=== PATIENT | female | born 1965 | race American Indian/Alaskan Native ===

== ENCOUNTER 2020-03-25 06:32 | Emergency (ER) | payer OTHER ==
--- NOTE | 2020-03-25 07:02 | Emergency Department Report ---
ED General Adult HPI - General Chief complaint: Altered Mental Status Stated complaint: ALTERED PUI?: No Time Seen by Provider: 03/25/20 06:53 Source: patient, EMS (Verbal report received from emergency medical services. EMS documentation not available at time of chart dictation ), RN notes reviewed Limitations: Altered Mental Status - History of Present Illness Initial comments: The patient was evaluated in the emergency department for symptoms described in the history of present illness. He/she was evaluated in the context of the global COVID-19 pandemic, which necessitated consideration that the patient might be at risk for infection with the virus that causes COVID-19. Institutional protocols and algorithms that pertain to the evaluation of patients at risk for COVID-19 are in a state of rapid change based on information released by regulatory bodies including the CDC and federal and state organizations. These policies and algorithms were followed during the patient's care in the emergency department. Please note that these policies, procedures and recommendations changed on a rapid basis. This is a 54-year-old female. She is not known to myself previously. The details of her past medical history are not known. She is brought to the hospital by emergency medical services. Apparently, patient was sitting in a parked car in a [employer] parking lot, which was not running, and not damaged. The patient was not really moving, or doing anything, so concern passers by called 911. Emergency medical services tells me that the patient had unremarkable vital signs in the field, and a fairly unremarkable glucose. They also tell me that the patient was negative on their [place] stroke scale. The patient is not accompanied by friends or family at this time for collateral information or additional information. The patient herself is minimally verbal. She is awake, and when examined, exclaims "shit!" However, she will not tell me if she is having physical pain, or if she has attempted to overdose on anything. History limited as patient is not forthcoming,/unable to provide collateral information, the patient is not accompanied by friends or family at this time for additional history. -: unknown - Related Data Previous Rx's Medication Instructions Recorded Last Taken Type Nitrofurantoin Adams/M-Cryst 100 mg PO Q12HR #14 capsule 03/25/20 Unknown Rx [Macrobid CAP] Potassium Chloride 20 meq PO BID #30 packet 03/25/20 Unknown Rx Allergies Allergy/AdvReac Type Severity Reaction Status Date / Time Unable to Assess Allergy Unverified 03/25/20 06:46 ED Review of Systems ROS: Stated complaint: ALTERED Other details as noted in HPI Comment: Unobtainable due to pts medical conditions ED Past Medical Hx - Medications Home Medications: Home Medications Medication Instructions Recorded Confirmed Last Taken Type Nitrofurantoin Adams/M-Cryst 100 mg PO Q12HR #14 capsule 03/25/20 Unknown Rx [Macrobid CAP] Potassium Chloride 20 meq PO BID #30 packet 03/25/20 Unknown Rx ED Physical Exam - General Limitations: Altered Mental Status General appearance: alert, in no apparent distress, appears intoxicated, obese - Head Head exam: Present: atraumatic, normocephalic - Eye Eye exam: Present: normal appearance, PERRL, EOMI. Absent: nystagmus - ENT ENT exam: Present: normal exam, normal orophraynx, mucous membranes moist, normal external ear exam - Neck Neck exam: Present: normal inspection, full ROM. Absent: tenderness, meningismus - Respiratory Respiratory exam: Present: normal lung sounds bilaterally. Absent: respiratory distress, wheezes, rales, rhonchi, stridor, decreased breath sounds - Cardiovascular Cardiovascular Exam: Present: regular rate, normal rhythm, normal heart sounds. Absent: bradycardia, tachycardia, irregular rhythm, systolic murmur, diastolic murmur, rubs, gallop - GI/Abdominal GI/Abdominal exam: Present: soft. Absent: distended, tenderness, guarding, rebound, rigid, pulsatile mass - Extremities Exam Extremities exam: Present: normal inspection, full ROM, other (2+ pulses noted in the bilateral upper and lower extremities. There is no palpable cord. negative Homans sign. Muscular compartments are soft. The pelvis is stable.). Absent: pedal edema, calf tenderness - Back Exam Back exam: Present: normal inspection, full ROM. Absent: tenderness, CVA tenderness (R), CVA tenderness (L), paraspinal tenderness, vertebral tenderness - Neurological Exam Neurological exam: Present: altered, other (The patient is awake. The patient is moving 4 extremities. Sensation is intact to pinch in 4 extremities. There is no obvious facial droop.) - Skin Skin exam: Present: warm, dry, intact, normal color. Absent: rash ED Course Vital Signs 03/25/20 03/25/20 03/25/20 06:39 06:45 06:48 Temperature 97.7 F Pulse Rate 76 Respiratory 15 Rate Blood Pressure 113/63 123/72 Blood Pressure 123/72 [Right] O2 Sat by Pulse 95 96 Oximetry 03/25/20 03/25/20 03/25/20 07:12 07:26 07:30 Temperature Pulse Rate 83 80 Respiratory 13 14 Rate Blood Pressure 123/72 120/76 120/76 Blood Pressure [Right] O2 Sat by Pulse 97 Oximetry 03/25/20 03/25/20 03/25/20 07:45 07:53 08:00 Temperature Pulse Rate 75 73 Respiratory 14 24 27 H Rate Blood Pressure 115/63 95/52 Blood Pressure [Right] O2 Sat by Pulse 97 99 97 Oximetry 03/25/20 03/25/20 03/25/20 08:15 08:30 08:45 Temperature Pulse Rate 79 70 Respiratory 15 33 H Rate Blood Pressure 81/48 116/69 99/48 Blood Pressure [Right] O2 Sat by Pulse 96 99 99 Oximetry 03/25/20 03/25/20 03/25/20 09:00 09:15 09:30 Temperature Pulse Rate 70 72 Respiratory 23 16 Rate Blood Pressure 103/57 104/56 86/51 Blood Pressure [Right] O2 Sat by Pulse 91 97 98 Oximetry 03/25/20 03/25/20 03/25/20 09:45 10:00 10:15 Temperature Pulse Rate Respiratory Rate Blood Pressure 104/59 87/50 91/53 Blood Pressure [Right] O2 Sat by Pulse 98 98 99 Oximetry 03/25/20 03/25/20 03/25/20 10:31 10:45 11:01 Temperature Pulse Rate 74 Respiratory Rate Blood Pressure 108/66 108/66 117/94 Blood Pressure [Right] O2 Sat by Pulse 97 98 100 Oximetry 03/25/20 03/25/20 03/25/20 11:15 11:30 11:45 Temperature Pulse Rate Respiratory Rate Blood Pressure 116/83 113/71 106/65 Blood Pressure [Right] O2 Sat by Pulse 100 100 99 Oximetry 03/25/20 03/25/20 12:00 12:15 Temperature Pulse Rate 73 Respiratory 14 Rate Blood Pressure 119/72 120/80 Blood Pressure [Right] O2 Sat by Pulse 97 96 Oximetry - Reevaluation(s) Reevaluation #1: 03/25/20 07:28 Differential diagnosis, including but not limited to: Intracranial injury, toxic encephalopathy, metabolic encephalopathy, pneumonia, urinary tract infection Assessment and plan: 54-year-old female who is likely intoxicated. There is no sign of blunt trauma to the patient, and EMS states vehicle was undamaged. Patient will be placed on hold status, and laboratory studies will be obtained to evaluate for emergent toxicologic condition. CT scan of the brain was negative, there is no midline cervical spine tenderness, the patient is moving 4 extremities spontaneously, and there is no history of blunt or penetrating trauma. Suspect intoxication. Reassess after data points have resulted. 03/25/20 11:54 Patient has been reassessed multiple times while here in the emergency depa rtment. She is now awake, alert, oriented, and clinically sober. CT scan of the brain, x-ray of the chest were negative for acute findings. Urinalysis reviewed and appreciated, patient denies urinary symptoms. She states that last night, she recreationally indulging cocaine, and also took one of her prescribed amitriptyline. She states that she was not trying to harm herself. She is remorseful about her cocaine use. She denies all physical pain at this time. She is alert and oriented to name, place, location, month, year. She denies hallucinations. She states a family member will come by and pick her up. The patient does not meet criteria for involuntary confinement of 1013 hold at this time. Her medical work-up is fairly unremarkable, and given improvement in mental status, lucidity of patient's examination at this time, do not see a criteria to admit patient to the inpatient medical service. Patient was extensively counseled on need to avoid recreational drug consumption, and to use medications as prescribed/directed. 03/25/20 17:27 Patient able to ambulate and of this emergency department with a steady gait. ED Medical Decision Making - Lab Data Result diagrams: 03/25/20 07:27 03/25/20 07:27 Vital Signs 03/25/20 06:48 Temperature 97.7 F Pulse Rate 76 Respiratory 15 Rate Blood Pressure 123/72 [Right] O2 Sat by Pulse 96 Oximetry Lab Results 03/25/20 03/25/20 03/25/20 Range/Units 06:53 07:27 07:27 WBC (4.5-11.0) K/mm3 RBC (3.65-5.03) M/mm3 Hgb (10.1-14.3) gm/dl Hct (30.3-42.9) % MCV (79-97) fl MCH (28-32) pg MCHC (30-34) % RDW (13.2-15.2) % Plt Count (140-440) K/mm3 Sodium 141 (137-145) mmol/L Chloride 102.5 (98-107) mmol/L Carbon Dioxide 28 (22-30) mmol/L Anion Gap 14 mmol/L BUN 29 H (7-17) mg/dL Creatinine 0.8 (0.6-1.2) mg/dL Estimated GFR > 60 ml/min BUN/Creatinine Ratio 36 % Glucose 104 H (65-100) mg/dL POC Glucose 144 H (70-105) mg/dL Calcium 9.5 (8.4-10.2) mg/dL Magnesium 2.50 H (1.7-2.3) mg/dL Total Bilirubin 0.20 (0.1-1.2) mg/dL AST 33 (5-40) units/L ALT 27 (7-56) units/L Alkaline Phosphatase 99 (35-129) units/L Total Creatine Kinase 459 H (30-135) units/L Total Protein 7.7 (6.3-8.2) g/dL Albumin 4.0 (3.9-5) g/dL Albumin/Globulin Ratio 1.1 % Urine Color (Yellow) Urine Turbidity (Clear) Urine pH (5.0-7.0) Ur Specific [place] (1.003-1.030) Urine Protein (Negative) mg/dL Urine Glucose (UA) (Negative) mg/dL Urine Ketones (Negative) mg/dL Urine Blood (Negative) Urine Nitrite (Negative) Urine Bilirubin (Negative) Urine Urobilinogen (<2.0) mg/dL Ur Leukocyte Esterase (Negative) Urine WBC (Auto) (0.0-6.0) /HPF Urine RBC (Auto) (0.0-6.0) /HPF U Epithel Cells (Auto) (0-13.0) /HPF Urine Mucus /HPF Salicylates (2.8-20.0) mg/dL Acetaminophen (10.0-30.0) ug/mL Plasma/Serum Alcohol (0-0.07) % 03/25/20 03/25/20 03/25/20 Range/Units 07:27 07:27 07:27 WBC (4.5-11.0) K/mm3 RBC (3.65-5.03) M/mm3 Hgb (10.1-14.3) gm/dl Hct (30.3-42.9) % MCV (79-97) fl MCH (28-32) pg MCHC (30-34) % RDW (13.2-15.2) % Plt Count (140-440) K/mm3 Sodium (137-145) mmol/L Chloride (98-107) mmol/L Carbon Dioxide (22-30) mmol/L Anion Gap mmol/L BUN (7-17) mg/dL Creatinine (0.6-1.2) mg/dL Estimated GFR ml/min BUN/Creatinine Ratio % Glucose (65-100) mg/dL POC Glucose (70-105) mg/dL Calcium (8.4-10.2) mg/dL Magnesium (1.7-2.3) mg/dL Total Bilirubin (0.1-1.2) mg/dL AST (5-40) units/L ALT (7-56) units/L Alkaline Phosphatase (35-129) units/L Total Creatine Kinase (30-135) units/L Total Protein (6.3-8.2) g/dL Albumin (3.9-5) g/dL Albumin/Globulin Ratio % Urine Color (Yellow) Urine Turbidity (Clear) Urine pH (5.0-7.0) Ur Specific [place] (1.003-1.030) Urine Protein (Negative) mg/dL Urine Glucose (UA) (Negative) mg/dL Urine Ketones (Negative) mg/dL Urine Blood (Negative) Urine Nitrite (Negative) Urine Bilirubin (Negative) Urine Urobilinogen (<2.0) mg/dL Ur Leukocyte Esterase (Negative) Urine WBC (Auto) (0.0-6.0) /HPF Urine RBC (Auto) (0.0-6.0) /HPF U Epithel Cells (Auto) (0-13.0) /HPF Urine Mucus /HPF Salicylates 3.0 (2.8-20.0) mg/dL Acetaminophen 5.0 L (10.0-30.0) ug/mL Plasma/Serum Alcohol < 0.01 (0-0.07) % 03/25/20 03/25/20 Range/Units 07:27 07:53 WBC 9.5 (4.5-11.0) K/mm3 RBC 4.81 (3.65-5.03) M/mm3 Hgb 12.9 (10.1-14.3) gm/dl Hct 39.9 (30.3-42.9) % MCV 83 (79-97) fl MCH 27 L (28-32) pg MCHC 32 (30-34) % RDW 14.3 (13.2-15.2) % Plt Count 283 (140-440) K/mm3 Sodium (137-145) mmol/L Chloride (98-107) mmol/L Carbon Dioxide (22-30) mmol/L Anion Gap mmol/L BUN (7-17) mg/dL Creatinine (0.6-1.2) mg/dL Estimated GFR ml/min BUN/Creatinine Ratio % Glucose (65-100) mg/dL POC Glucose (70-105) mg/dL Calcium (8.4-10.2) mg/dL Magnesium (1.7-2.3) mg/dL Total Bilirubin (0.1-1.2) mg/dL AST (5-40) units/L ALT (7-56) units/L Alkaline Phosphatase (35-129) units/L Total Creatine Kinase (30-135) units/L Total Protein (6.3-8.2) g/dL Albumin (3.9-5) g/dL Albumin/Globulin Ratio % Urine Color Yellow (Yellow) Urine Turbidity Clear (Clear) Urine pH 5.0 (5.0-7.0) Ur Specific [place] 1.034 H (1.003-1.030) Urine Protein 30 mg/dl (Negative) mg/dL Urine Glucose (UA) Neg (Negative) mg/dL Urine Ketones Neg (Negative) mg/dL Urine Blood Neg (Negative) Urine Nitrite Neg (Negative) Urine Bilirubin Neg (Negative) Urine Urobilinogen < 2.0 (<2.0) mg/dL Ur Leukocyte Esterase Sm (Negative) Urine WBC (Auto) 7.0 H (0.0-6.0) /HPF Urine RBC (Auto) 2.0 (0.0-6.0) /HPF U Epithel Cells (Auto) 4.0 (0-13.0) /HPF Urine Mucus 3+ /HPF Salicylates (2.8-20.0) mg/dL Acetaminophen (10.0-30.0) ug/mL Plasma/Serum Alcohol (0-0.07) % Lab Results 03/25/20 03/25/20 03/25/20 Range/Units 06:53 07:27 07:27 WBC (4.5-11.0) K/mm3 RBC (3.65-5.03) M/mm3 Hgb (10.1-14.3) gm/dl Hct (30.3-42.9) % MCV (79-97) fl MCH (28-32) pg MCHC (30-34) % RDW (13.2-15.2) % Plt Count (140-440) K/mm3 Sodium 141 (137-145) mmol/L Chloride 102.5 (98-107) mmol/L Carbon Dioxide 28 (22-30) mmol/L Anion Gap 14 mmol/L BUN 29 H (7-17) mg/dL Creatinine 0.8 (0.6-1.2) mg/dL Estimated GFR > 60 ml/min BUN/Creatinine Ratio 36 % Glucose 104 H (65-100) mg/dL POC Glucose 144 H (70-105) mg/dL Calcium 9.5 (8.4-10.2) mg/dL Magnesium 2.50 H (1.7-2.3) mg/dL Total Bilirubin 0.20 (0.1-1.2) mg/dL AST 33 (5-40) units/L ALT 27 (7-56) units/L Alkaline Phosphatase 99 (35-129) units/L Total Creatine Kinase 459 H (30-135) units/L Total Protein 7.7 (6.3-8.2) g/dL Albumin 4.0 (3.9-5) g/dL Albumin/Globulin Ratio 1.1 % Urine Color (Yellow) Urine Turbidity (Clear) Urine pH (5.0-7.0) Ur Specific [place] (1.003-1.030) Urine Protein (Negative) mg/dL Urine Glucose (UA) (Negative) mg/dL Urine Ketones (Negative) mg/dL Urine Blood (Negative) Urine Nitrite (Negative) Urine Bilirubin (Negative) Urine Urobilinogen (<2.0) mg/dL Ur Leukocyte Esterase (Negative) Urine WBC (Auto) (0.0-6.0) /HPF Urine RBC (Auto) (0.0-6.0) /HPF U Epithel Cells (Auto) (0-13.0) /HPF Urine Mucus /HPF Salicylates (2.8-20.0) mg/dL Acetaminophen (10.0-30.0) ug/mL Plasma/Serum Alcohol (0-0.07) % 03/25/20 03/25/20 03/25/20 Range/Units 07:27 07:27 07:27 WBC (4.5-11.0) K/mm3 RBC (3.65-5.03) M/mm3 Hgb (10.1-14.3) gm/dl Hct (30.3-42.9) % MCV (79-97) fl MCH (28-32) pg MCHC (30-34) % RDW (13.2-15.2) % Plt Count (140-440) K/mm3 Sodium (137-145) mmol/L Chloride (98-107) mmol/L Carbon Dioxide (22-30) mmol/L Anion Gap mmol/L BUN (7-17) mg/dL Creatinine (0.6-1.2) mg/dL Estimated GFR ml/min BUN/Creatinine Ratio % Glucose (65-100) mg/dL POC Glucose (70-105) mg/dL Calcium (8.4-10.2) mg/dL Magnesium (1.7-2.3) mg/dL Total Bilirubin (0.1-1.2) mg/dL AST (5-40) units/L ALT (7-56) units/L Alkaline Phosphatase (35-129) units/L Total Creatine Kinase (30-135) units/L Total Protein (6.3-8.2) g/dL Albumin (3.9-5) g/dL Albumin/Globulin Ratio % Urine Color (Yellow) Urine Turbidity (Clear) Urine pH (5.0-7.0) Ur Specific [place] (1.003-1.030) Urine Protein (Negative) mg/dL Urine Glucose (UA) (Negative) mg/dL Urine Ketones (Negative) mg/dL Urine Blood (Negative) Urine Nitrite (Negative) Urine Bilirubin (Negative) Urine Urobilinogen (<2.0) mg/dL Ur Leukocyte Esterase (Negative) Urine WBC (Auto) (0.0-6.0) /HPF Urine RBC (Auto) (0.0-6.0) /HPF U Epithel Cells (Auto) (0-13.0) /HPF Urine Mucus /HPF Salicylates 3.0 (2.8-20.0) mg/dL Acetaminophen 5.0 L (10.0-30.0) ug/mL Plasma/Serum Alcohol < 0.01 (0-0.07) % 03/25/20 03/25/20 Range/Units 07:27 07:53 WBC 9.5 (4.5-11.0) K/mm3 RBC 4.81 (3.65-5.03) M/mm3 Hgb 12.9 (10.1-14.3) gm/dl Hct 39.9 (30.3-42.9) % MCV 83 (79-97) fl MCH 27 L (28-32) pg MCHC 32 (30-34) % RDW 14.3 (13.2-15.2) % Plt Count 283 (140-440) K/mm3 Sodium (137-145) mmol/L Chloride (98-107) mmol/L Carbon Dioxide (22-30) mmol/L Anion Gap mmol/L BUN (7-17) mg/dL Creatinine (0.6-1.2) mg/dL Estimated GFR ml/min BUN/Creatinine Ratio % Glucose (65-100) mg/dL POC Glucose (70-105) mg/dL Calcium (8.4-10.2) mg/dL Magnesium (1.7-2.3) mg/dL Total Bilirubin (0.1-1.2) mg/dL AST (5-40) units/L ALT (7-56) units/L Alkaline Phosphatase (35-129) units/L Total Creatine Kinase (30-135) units/L Total Protein (6.3-8.2) g/dL Albumin (3.9-5) g/dL Albumin/Globulin Ratio % Urine Color Yellow (Yellow) Urine Turbidity Clear (Clear) Urine pH 5.0 (5.0-7.0) Ur Specific [place] 1.034 H (1.003-1.030) Urine Protein 30 mg/dl (Negative) mg/dL Urine Glucose (UA) Neg (Negative) mg/dL Urine Ketones Neg (Negative) mg/dL Urine Blood Neg (Negative) Urine Nitrite Neg (Negative) Urine Bilirubin Neg (Negative) Urine Urobilinogen < 2.0 (<2.0) mg/dL Ur Leukocyte Esterase Sm (Negative) Urine WBC (Auto) 7.0 H (0.0-6.0) /HPF Urine RBC (Auto) 2.0 (0.0-6.0) /HPF U Epithel Cells (Auto) 4.0 (0-13.0) /HPF Urine Mucus 3+ /HPF Salicylates (2.8-20.0) mg/dL Acetaminophen (10.0-30.0) ug/mL Plasma/Serum Alcohol (0-0.07) % - EKG Data -: EKG Interpreted by [facility] EKG shows normal: sinus rhythm Rate: normal - EKG Data When compared to previous EKG there are: previous EKG unavailable 03/25/20 08:17 Sinus rhythm, 78 bpm, normal axis, QTC prolonged, left ventricular hypertrophy, motion artifact. This EKG is abnormal. This EKG is not a STEMI. There is no prior EKG available for comparison. - Radiology Data Radiology results: report reviewed, image reviewed Noncontrast CT scan of the brain is negative for acute findings. Critical care attestation.: If time is entered above; I have spent that time in minutes in the direct care of this critically ill patient, excluding procedure time. ED Disposition Clinical Impression: Dehydration, History of cocaine use, Hypokalemia, Pyuria Disposition: DC-01 TO HOME OR SELFCARE Is pt being admited?: No Does the pt Need Aspirin: No Condition: Stable Additional Instructions: Please make certain to drink at least 6 cups of water per day indefinitely. Please make certain to eat at least 4-5 meals per day indefinitely. Recommend that patient not drive or operate motor vehicles for the next 6 months, or until cleared to do so by a primary care doctor. Recommend follow-up with a primary care doctor within the next week. Strongly recommend that patient avoid consumption of recreational drugs, such as cocaine, meth, alcohol, marijuana. Recommend that patient avoid consumption of all sedating medications, substances, both legal and illegal. Please return to the emergency room right away with new pain, worsened pain, mi gration of pain, projectile vomiting, change in mental status, confusion, inability to tolerate liquid feeds, new, worsened or different symptoms not present on the initial emergency room evaluation. Prescriptions: Nitrofurantoin Adams/M-Cryst [Macrobid CAP] 100 mg PO Q12HR #14 capsule Potassium Chloride 20 meq PO BID #30 packet Referrals: DENZEL RIVERA MD [Staff Physician] - 3-5 Days
--- NOTE | 2020-03-25 07:22 | Cat Scan Report ---
CT head without contrast INDICATION : Altered Mental Status. TECHNIQUE: Axial imaging performed from the skull apex through the skull base without the use of con trast. All CT scans at this location are performed using CT dose reduction for ALARA by means of aut omated exposure control. COMPARISON: None FINDINGS: Parenchyma: No acute intracranial hemorrhage or parenchymal abnormality. Ventricles: Ventricles are normal in size and appear symmetric. Soft tissues: Soft tissues including the orbits appear normal. Bones: No acute osseous abnormality. Sinuses: Sinuses and mastoid air cells are clear. IMPRESSION: No acute abnormality. Signer Name: Jonathan Adrian MD Signed: 03/25/2020 7:17 AM Workstation Name: [id number]
[2020-03-25 07:50] LABS: Hematocrit 39.9 % (30.3-42.9); Hemoglobin 12.9 gm/dl (10.1-14.3); Mean Corpuscular HGB Conc 32 % (30-34); Mean Corpuscular Volume 83 fl (79-97); Platelet Count 283 K/mm3 (140-440); Red Blood Count 4.81 M/mm3 (3.65-5.03); Red Cell Distribution Width 14.3 % (13.2-15.2)
[2020-03-25 07:53] LABS: Bilirubin,Urine NEG (Negative); Blood,Urine NEG (Negative); Color,Urine Yellow (Yellow); Mucus,Urine 3+ /HPF; Urobilinogen,Urine < 2.0 mg/dL (<2.0)
[2020-03-25 08:11] LABS: BUN/Creatinine Ratio 36; Blood Urea Nitrogen 29 mg/dL (7-17); Calcium 9.5 mg/dL (8.4-10.2); Hemolysis Index 51
[2020-03-25 08:14] LABS: Alanine Aminotransferase 27 units/L (7-56)
--- NOTE | 2020-03-25 08:14 | XRay Report ---
CHEST 1 VIEW INDICATION: ams. COMPARISON: None FINDINGS: Support devices: None. Heart: Within normal limits. Lungs/Pleura: No acute air space or interstitial disease. Additional findings: None. IMPRESSION: No acute findings. Signer Name: Emerson Medina Jr, MD Signed: 03/25/2020 8:09 AM Workstation Name: [id number]
[2020-03-25 08:28] LABS: Amphetamine Screen,Urine Negative; Benzodiazepines Screen,Urine Negative; Cannabinoid Screen,Urine Negative; Methadone Screen,Urine Negative; Opiate Screen,Urine Negative
[2020-03-25 08:37] LABS: Bilirubin,Direct < 0.2 mg/dL (0-0.2)
[2020-03-25] MEDS ORDERED: D5W/0.45% NACL 1,000 ML IV SCH (09:00)
[2020-03-25 09:13] LABS: ABG Base Excess 3.9 mmol/L (-2.0-3.0); ABG HCO3 29.9 mmol/L (20.0-26.0); ABG Methemoglobin 0.5 % (0.0-1.5); ABG Oxygen Saturation 95.7 % (95.0-99.0); ABG PCO2 51.4 mm Hg; ABG PH 7.383 pH Units (7.350-7.450); ABG PO2 74.8 mm Hg (80.0-90.0)
[2020-03-25 09:14] LABS: Cocaine Screen,Urine PRESUMPTIVE POSITIVE
[2020-03-25] MEDS: POTASSIUM CHLORIDE 10 MEQ 10 MEQ/100 ML BAG IV SCH ×2 (09:14→10:18)
[2020-03-25 12:28] VITALS: BP 120/80
== END 2020-03-25 12:49 | disposition home or self-care (01) ==
LOC: ED 06:32
DX: E86.0 Dehydration (principal); E87.6 Hypokalemia; R82.81 Pyuria; Z79.899 Other long term (current) drug therapy; Z87.898 Personal history of other specified conditions
CPT/HCPCS: 36415; 70450; 71045; 80048; 80076; 80307; 81001; 82550; 82803; 82962; 83735; 84443; 85027; 93005; 96361; 96365; 96366; 99285; J3480; 80320; G0480

== ENCOUNTER 2021-12-21 17:36 | Emergency (ER) | payer SELFPAY | END 2021-12-21 19:11 | disposition left against medical advice (07) | LOC: ED 17:36 | DX: H92.09 Otalgia, unspecified ear (principal); Z53.21 Procedure and treatment not carried out due to patient leaving prior to being seen by health care provider ==